=== PATIENT | male | born 1985 | race Two or more races ===

== ENCOUNTER 2018-07-12 15:02 | Emergency (ER) | payer OTHER ==
[~2018-07-12] VITALS: Ht 177.8 cm; Wt 80.0 kg
[2018-07-12 15:06] VITALS: BP 145/86
== END 2018-07-12 16:02 | disposition home or self-care (01) ==
LOC: ER 15:02
DX: Z00.00 Encounter for general adult medical examination without abnormal findings (principal); F41.9 Anxiety disorder, unspecified; E11.9 Type 2 diabetes mellitus without complications; I10 Essential (primary) hypertension
CPT/HCPCS: 99283; Z7610